=== PATIENT | male | born 1995 | race Caucasian/White ===

== ENCOUNTER 2019-07-10 18:26 | Emergency (ER) | payer BC ==
[2019-07-10 19:11] VITALS: BP 148/87
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
== END 2019-07-10 19:37 | disposition home or self-care (01) ==
LOC: UCCORT 18:26
DX: L73.9 Follicular disorder, unspecified (principal); L03.115 Cellulitis of right lower limb; F17.220 Nicotine dependence, chewing tobacco, uncomplicated
CPT/HCPCS: 99202; G0463